=== PATIENT | female | born 2000 | race Caucasian/White ===

== ENCOUNTER 2021-03-23 01:55 | Emergency (ER) | payer MEDICAID ==
[2021-03-23 02:29] LABS: Bacteria/HPF None Seen HPF (None Seen); Bilirubin Negative (Negative); Blood, Urine Negative (Negative); Clarity Clear (Clear); Glucose, Urine (Dipstick) Normal (Negative); Ketone, Urine Trace mg/dL (Negative); Leukocyte Negative Leu/uL (Negative); Mucous/LPF Rare LPF (<2+); Nitrite Negative (Negative); Protein, Urine (Dipstick) 30 mg/dL (Neg-Trace); RBC/HPF 0-3 HPF (0-3); Specific Gravity, Urine 1.036 (1.002-1.036); Urobilinogen 3 mg/dL (Less than 2); WBC/HPF 0-3 HPF (0-3); pH, Urine 5.5 (5.0-9.0)
[2021-03-23 04:21] LABS: Pregnancy Test - Urine (BHCG) Negative (Negative); Pregu Control Background? CLEAR/WHITE (CLR/WHITE); Pregu Control Bar Appear? YES (CONTROL BAR); Specific Gravity 1.036 (1.002-1.036)
[2021-03-23] MEDS ORDERED: cefTRIAXone\\ROCEPHIN 500 MG VIAL ONE (04:38)
[2021-03-23] MEDS ORDERED: Sterile Water 10 ML ONE (04:39)
[2021-03-25 05:32] LABS: Chlamydia by PCR Not Detected (NotDetected); GC by PCR Not Detected (NotDetected)
== END 2021-03-23 04:45 | disposition home or self-care (01) ==
LOC: ERS 01:55
DX: N76.0 Acute vaginitis (principal)
CPT/HCPCS: 81003; 81015; 81025; 87480; 87491; 87510; 87591; 87660; 96372; 99283; J0696

== ENCOUNTER 2022-10-22 23:30 | Emergency (ER) | payer MEDICAID, OTHER | END 2022-10-23 00:15 | disposition home or self-care (01) | LOC: ERS 23:30 | DX: N76.89 Other specified inflammation of vagina and vulva (principal) | CPT/HCPCS: 99283 ==

== ENCOUNTER 2023-06-04 12:58 | Emergency (ER) | payer OTHER, SELFPAY ==
[2023-06-04 14:52] LABS: Pregnancy Test - Urine (BHCG) Negative (Negative); Pregu Control Background? CLEAR/WHITE (CLR/WHITE); Pregu Control Bar Appear? YES (CONTROL BAR); Specific Gravity 1.012 (1.002-1.036)
[2023-06-04 14:53] LABS: Bacteria/HPF None Seen HPF (None Seen); Bilirubin Negative (Negative); Blood, Urine Negative (Negative); CAUTI Indications for Culture Dysuria,urgency,freq; Clarity Clear (Clear); Glucose, Urine (Dipstick) Normal (Negative); Ketone, Urine Negative (Negative); Leukocyte 250 Leu/uL (Negative); Nitrite Negative (Negative); Protein, Urine (Dipstick) Negative (Neg-Trace); RBC/HPF 0-3 HPF (0-3); Specific Gravity, Urine 1.012 (1.002-1.036); Urobilinogen Normal mg/dL (Less than 2); WBC/HPF 0-3 HPF (0-3)
[2023-06-04 14:56] LABS: Urine Culture Reflex No No
[2023-06-04] MEDS ORDERED: Azithromycin 250 MG TAB ONE (15:03)
[2023-06-04] MEDS ORDERED: Bicillin LA 2.4 MILL.UNITS/4 ML SYRINGE ONE (15:03)
[2023-06-04] MEDS ORDERED: cefTRIAXone (ROCEPHIN) 500 MG VIAL ONE (15:03)
[2023-06-04] MEDS ORDERED: Lidocaine 1% MPF 2 ML VIAL ONE (15:03)
[2023-06-04 19:26] LABS: Syphilis Antibody Index 23.76 S/CO (<1.00 Non-Reactive)
[2023-06-04 21:38] LABS: Syphilis Antibody REACTIVE (Nonreactive)
[2023-06-05 16:43] LABS: Chlam.trachomatis by PCR,Urine Not Detected (NotDetected); GC N.gonorrhoeae PCR,UrineVOID Not Detected (NotDetected)
== END 2023-06-04 16:20 | disposition home or self-care (01) ==
LOC: ERS 12:58
DX: N76.0 Acute vaginitis (principal); Z20.2 Contact with and (suspected) exposure to infections with a predominantly sexual mode of transmission
CPT/HCPCS: 36415; 81001; 81025; 86593; 86780; 87480; 87491; 87510; 87591; 87660; 96372; 99283; J0561; J0696

== ENCOUNTER 2023-10-07 11:16 | Emergency (ER) | payer SELFPAY | END 2023-10-07 12:44 | disposition home or self-care (01) | LOC: ERS 11:16 | DX: B07.0 Plantar wart (principal) ==